=== PATIENT | female | born 1995 | race Caucasian/White ===

== ENCOUNTER 2017-01-08 17:09 | Emergency (ER) | payer OTHER ==
--- NOTE | 2017-01-08 18:20 | RAD ---
Indication: Hit head playing rugby. Contusion. Comparison: No relevant prior exams available on the [facility] PACS for comparison. Technique: Noncontrast CT vertex of skull through foramen magnum. Report: The sulci, ventricles, and basal cisterns are normal for age. [place] matter white matter differentiation is preserved without evidence for edema. No intra or extra axial hemorrhage is detected. Unremarkable orbital contents. Negative for calvarial or skull base fracture. Minimal scalp soft tissue swelling over the RIGHT forehead. The visualized paranasal sinuses and mastoid air spaces are clear. IMPRESSION: Minimal RIGHT scalp soft tissue swelling. No evidence for traumatic brain injury.
[2017-01-08 18:21] LABS: UR Preg Internal Control QC Line Present; UR Preg Kit Lot# 7030210
[2017-01-08 18:22] LABS: Manual Entry Verification CAR0052
[2017-01-08] MEDS ORDERED: Ibuprofen TAB* 800 MG PO ONE (18:48)
--- NOTE | 2017-01-08 19:16 | RAD ---
INDICATION: Facial pain following injury playing rugby. COMPARISON: CT brain of the same date. TECHNIQUE: Multidetector CT base of the skull through mandible without contrast. Multiplanar reformation. REPORT: Mild RIGHT frontal scalp swelling. No loculated hematoma evident. Unremarkable orbital contents. The orbital and maxillary sinus margins, zygomatic arches, lamina papyracea, base of the maxilla, pterygoid plates, and nasal bones are intact. The mandible is intact. Normal temporal mandibular joint alignment. IMPRESSION: Mild RIGHT frontal scalp swelling. No CT evidence for maxillofacial fracture.
[2017-01-08 20:16] VITALS: BP 131/66
--- NOTE | 2017-01-09 17:35 | ED ---
Taniya Alvarez Edward, scribed for Mehul Quijano MD on 01/08/17 at 1737 . Head Injury - HPI Summary HPI Summary: 21 y/o female presents to the ED face pain rated at 4/10 in severity s/p head injury this morning, sent by [facility]. The pain is described as a pressure behind her L eye. The pt was dx with a possible concussion and possible fracture in face at [facility]. The patient smashed heads with teammate during a rugby match today - back of teammates head hit R eye socket at 11:00 this morning. Denies N/V, blurred vision. Not sure about LOC. - History Of Current Complaint Chief Complaint: EDHeadInjury Stated Complaint: FACE XRAY/SENT FROM [facility] Time Seen by Provider: 01/08/17 17:28 Hx Obtained From: Patient Mechanism Of Injury: Direct Blow Onset of Pain: Immediate, Post Accident Severity Initially: Moderate Pain Intensity: 4 Pain Scale Used: 0-10 Numeric Location of Head Injury: Frontal Location: Discrete At: - L eye and face Associated Signs And Symptoms: Swelling, Bruising, Other: - Face pain - Allergies/Home Medications Allergies/Adverse Reactions: Allergies Allergy/AdvReac Type Severity Reaction Status Date / Time No Known Allergies Allergy Verified 01/08/17 17:25 PMH/Surg Hx/FS Hx/Imm Hx Previously Healthy: Yes Sensory History: Denies: Hx Legally Blind Infectious Disease History: No Infectious Disease History: Denies: Traveled Outside the [place] in Last 30 Days - Social History Occupation: Student Review of Systems Constitutional: Negative Eyes: Negative ENT: Negative Cardiovascular: Negative Respiratory: Negative Gastrointestinal: Negative Genitourinary: Negative Positive: Arthralgia - Face pain, Edema Positive: Bruising Neurological: Negative Psychological: Normal All Other Systems Reviewed And Are Negative: Yes Physical Exam - Summary Physical Exam Summary: VITAL SIGNS: Reviewed. GENERAL: ~Patient is a well-developed and nourished female who is lying comfortable in the stretcher. ~Patient is not in any acute respiratory distress. HEAD AND FACE: Tenderness arond L orbital - superior aspect of the orbit. There is small ecchymosis in the R superior eyelid. There is no eye entrapment. EYES: PERRLA, EOMI x 2, No injected conjunctiva, no nystagmus. The extraocular muscles are intact. EARS: Hearing grossly intact. Ear canals and tympanic membranes are within normal limits. MOUTH: Oropharynx within normal limits. NECK: Supple, trachea is midline, no adenopathy, no JVD, no carotid bruit, no c- spine tenderness, neck with full ROM. CHEST: Symmetric, no tenderness at palpation LUNGS: Clear to auscultation bilaterally. No wheezing or crackles. CVS: Regular rate and rhythm, S1 and S2 present, no murmurs or gallops appreciated. ABDOMEN: Soft, non-tender. No signs of distention. No rebound no guarding, and no masses palpated. Bowel sounds are normal. EXTREMITIES: FROM in all major joints, no edema, no cyanosis or clubbing. NEURO: Alert and oriented x 3. No acute neurological deficits. Speech is normal and follows commands. SKIN: Dry and warm Triage Information Reviewed: Yes Vital Signs On Initial Exam: Initial Vitals Temp Pulse Resp BP Pulse Ox 98.2 F 69 17 126/74 99 01/08/17 17:18 01/08/17 17:18 01/08/17 17:18 01/08/17 17:18 01/08/17 17:18 Vital Signs Reviewed: Yes Diagnostics - Vital Signs Vital Signs Temp Pulse Resp BP Pulse Ox 01/08/17 17:18 98.2 F 69 17 126/74 99 - Laboratory Lab Results: Lab Results 01/08/17 Range/Units 18:15 Urine Test Negative (Negative) Lab Statement: Any lab studies that have been ordered have been reviewed, and results considered in the medical decision making process. - CT MAXILLOFACIAL CT CT Interpretation: No Acute Changes - Mild RIGHT frontal scalp swelling. No CT evidence for maxillofacial fracture. CT Interpretation Completed By: Radiologist BRAIN CT CT Interpretation: No Acute Changes - Minimal RIGHT scalp soft tissue swelling. No evidence for traumatic brain injury. CT Interpretation Completed By: Radiologist Head Injury Course/Dx Assessment/Plan: 21 y/o female presents to the ED face pain rated at 4/10 in severity s/p head injury this morning, sent by [facility]. The pain is described as a pressure behind her L eye. The pt was dx with a possible concussion and possible fracture in face at [facility]. The patient smashed heads with teammate during a rugby match today - back of teammates head hit R eye socket at 11:00 this morning. Denies N/V, blurred vision. Not sure about LOC. MAXILLOFACIAL CT SHOWS Mild RIGHT frontal scalp swelling. No CT evidence for maxillofacial fracture. BRAIN CT SHOWS Minimal RIGHT scalp soft tissue swelling. No evidence for traumatic brain injury. In the ED course the pt was given ibuprofen for the pain. Pt neurological exam intact, therefore d/c home with f/u with PCP. The pt is hemodynamically stable and A&Ox3. - Diagnoses Differential Diagnosis/HQI/PQRI: Concussion Without LOC, Contusion, Mandible Fracture, Nasal Fracture, Orbital Fracture, Zygomatic Fracture Provider Diagnoses: Head contusion, Facial contusion Discharge - Discharge Plan Condition: Stable Disposition: HOME Patient Education Materials: Head Injury (ED), Contusion in Adults (ED), Facial Contusion (ED) Referrals: Elba Reece [Primary Care Provider] - 3 Days (PLEASE F/U IN 2-3 DAYS) The documentation as recorded by the Taniya neal Edward accurately reflects the service I personally performed and the decisions made by Samm giraldo Walter, MD.
== END 2017-01-08 20:18 | disposition home or self-care (01) ==
LOC: ED 17:09
DX: S00.93XA Contusion of unspecified part of head, initial encounter (principal); W50.0XXA Accidental hit or strike by another person, initial encounter; Y93.63 Activity, rugby; Y92.9 Unspecified place or not applicable; Y99.9 Unspecified external cause status
CPT/HCPCS: 70450; 70486; 81025; 99282; A9270-GY

== ENCOUNTER 2018-09-05 19:28 | Emergency (ER) | payer OTHER ==
[2018-09-05 20:09] VITALS: BP 112/64
--- NOTE | 2018-09-05 20:59 | UC ---
Skin Complaint HPI - HPI Summary HPI Summary: 22 yo female presents with abdominal lesions. She tells me that for the last 4 days she has noticed two red sores to her abdomen that are mildly itchy and tender. Thinks they are getting larger. Denies fever or chills. No hx of MRSA that she knows of. - History of Current Complaint Chief Complaint: UCSkin Time Seen by Provider: 09/05/18 20:59 Stated Complaint: SKIN COMPLAINT Hx Obtained From: Patient Hx Last Menstrual Period: august 2015 - has mirena IUD Onset/Duration: Gradual Onset Onset Severity: Mild Current Severity: Mild Pain Intensity: 3 Pain Scale Used: 0-10 Numeric - Allergy/Home Medications Allergies/Adverse Reactions: Allergies Allergy/AdvReac Type Severity Reaction Status Date / Time No Known Allergies Allergy Verified 09/05/18 20:09 Home Medications: Home Medications Escitalopram Oxalate [Lexapro 10 mg] 15 mg PO DAILY 09/05/18 [History Confirmed 09/05/18] Levonorgestrel (Iud) [Mirena IUD] 20 mcg 09/05/18 [History] PMH/Surg Hx/FS Hx/Imm Hx Psychological History: Anxiety, Depression - Surgical History Surgical History: None - Family History Known Family History: Positive: None - Social History Occupation: Employed Full-time Lives: With Family Alcohol Use: Rare Substance Use Type: None Smoking Status (MU): Former Smoker Review of Systems All Other Systems Reviewed And Are Negative: Yes Constitutional: Positive: Negative Skin: Positive: Other - Red sores on abdomen Respiratory: Positive: Negative Cardiovascular: Positive: Negative Gastrointestinal: Positive: Negative Neurological: Positive: Negative Psychological: Positive: Negative Physical Exam - Summary Physical Exam Summary: GENERAL: NAD. WDWN. No pain distress. SKIN: Abdomen: Just inferior to the umbilicus there is a 1.5cm area of mild erythema and irritation with central scab with slight fluctuance. Similar appearing lesion on right hip with scant drainage. No streaking or bleeding. NECK: Supple. Nontender. No lymphadenopathy. CHEST: No accessory muscle use. Breathing comfortably and in no distress. CV: Pulses intact. Cap refill <2seconds NEURO: Alert. PSYCH: Age appropriate behavior. Triage Information Reviewed: Yes Vital Signs: Initial Vital Signs Temp 98.5 F 09/05/18 20:04 Pulse 54 05/21/19 20:04 Resp 14 09/05/18 20:04 BP 112/64 09/05/18 20:04 Pulse Ox 100 09/05/18 20:04 Vital Signs Reviewed: Yes Course/Dx - Course Course Of Treatment: Lesions appear suspicious for MRSA. Culture obtained and will be sent. Rx for bactrim and bactroban. - Diagnoses Provider Diagnosis: Abscess Discharge - Sign-Out/Discharge Documenting (check all that apply): Patient Departure All imaging exams completed and their final reports reviewed: No Studies - Discharge Plan Condition: Stable Disposition: HOME Prescriptions: Mupirocin 2% CREAM* [Bactroban 2% CREAM*] 1 applic TOPICAL BID #1 tube Sulfamethox/Trimethoprim DS* [Bactrim DS 800/160 TAB*] 1 tab PO BID #14 tab Patient Education Materials: Pierced Earlobe Infection (ED), Abscess (ED) Referrals: Elba Reece [Primary Care Provider] - Additional Instructions: If you develop a fever, shortness of breath, chest pain, new or worsening symptoms - please call your PCP or go to the ED immediately. Please keep the areas covered with a band-aid until well healed (likely 5-7 days ) - Billing Disposition and Condition Condition: STABLE Disposition: Home
[2018-09-05] MEDS ORDERED: Sulfamethox/Trimethoprim DS 800/160* TAB PO ONE (21:06)
== END 2018-09-05 21:15 | disposition home or self-care (01) ==
LOC: UCEAST 19:28
DX: L02.211 Cutaneous abscess of abdominal wall (principal); Z87.891 Personal history of nicotine dependence
CPT/HCPCS: 87070; 87076; 87077; 87186; 87205; 87640; 87641; 99212; A9270-GY; G0463